=== PATIENT | female | born 1990 | race Caucasian/White ===

== ENCOUNTER 2017-04-19 08:32 | Emergency (ER) | payer OTHER | END 2017-04-19 10:00 | disposition home or self-care (01) | LOC: E/R 08:32 | DX: H66.91 Otitis media, unspecified, right ear (principal); J45.909 Unspecified asthma, uncomplicated; Z79.82 Long term (current) use of aspirin | CPT/HCPCS: 99283; Z7502 ==

== ENCOUNTER 2017-05-25 18:11 | Emergency (ER) | payer OTHER | END 2017-05-25 19:39 | disposition home or self-care (01) | LOC: E/R 18:11 | DX: R11.2 Nausea with vomiting, unspecified (principal); R19.7 Diarrhea, unspecified; J45.909 Unspecified asthma, uncomplicated; Z79.82 Long term (current) use of aspirin | CPT/HCPCS: 99283; Z7502 ==

== ENCOUNTER 2017-07-05 08:52 | Emergency (ER) | payer OTHER | END 2017-07-05 11:47 | disposition home or self-care (01) | LOC: FTE 11:47 | DX: M79.605 Pain in left leg (principal); J45.909 Unspecified asthma, uncomplicated; Z79.82 Long term (current) use of aspirin | CPT/HCPCS: 73550; 73590; 73610; 99283-25 ==

== ENCOUNTER 2017-07-31 10:59 | Emergency (ER) | payer OTHER | END 2017-07-31 11:25 | disposition home or self-care (01) | LOC: E/R 11:25 | DX: H66.93 Otitis media, unspecified, bilateral (principal); J45.909 Unspecified asthma, uncomplicated; Z79.82 Long term (current) use of aspirin | CPT/HCPCS: 99283; Z7502 ==

== ENCOUNTER 2018-02-25 09:35 | Emergency (ER) | payer OTHER | END 2018-02-25 10:31 | disposition home or self-care (01) | LOC: FTE 09:35 | DX: H93.92 Unspecified disorder of left ear (principal); J45.909 Unspecified asthma, uncomplicated | CPT/HCPCS: 99283; Z7502 ==